=== PATIENT | male | born 1960 | race Caucasian/White ===

== ENCOUNTER → 2018-10-22 | Outpatient (CLI) | payer BC ==
[2018-10-22 09:30] LABS: POTASSIUM 3.7 MMOL/L (3.6-5.0); SODIUM 138 MMOL/L (135-145)
[2018-10-22 09:31] LABS: ALANINE AMINOTRANSFERASE 60 U/L (0-55); ALBUMIN 4.4 GM/DL (3.2-4.5); ALKALINE PHOSPHATASE 67 U/L (40-136); BILIRUBIN,TOTAL 0.5 MG/DL (0.1-1.0); BUN/CREATININE RATIO 25; CALCIUM 9.3 MG/DL (8.5-10.1); CARBON DIOXIDE 17 MMOL/L (21-32); CHLORIDE 100 MMOL/L (98-107); CREATININE SERUM 0.89 MG/DL (0.60-1.30); GFR ESTIMATED > 60; GLUCOSE 191 MG/DL (70-105); TOTAL PROTEIN 7.2 GM/DL (6.4-8.2)
[2018-10-23 15:10] LABS: CHOLESTEROL 168 MG/DL (< 200); HDL CHOLESTEROL 38 MG/DL (40-60); TRIGLYCERIDES 183 MG/DL (<150); VLDL CHOLESTEROL 37 MG/DL (5-40)
== END ==
LOC: LAB FS 08:19
PROVIDERS: ATTEND Pediatrics
DX: E11.9 Type 2 diabetes mellitus without complications (principal)
CPT/HCPCS: 36415; 80053; 80061; 83036

== ENCOUNTER 2018-11-09 11:53 | Emergency (ER) | payer BC ==
[~2018-11-09] VITALS: Ht 167.6 cm; Wt 95.3 kg
--- NOTE | 2018-11-09 12:38 | ED Syncope ---
General Chief Complaint: Dizziness/Syncope Stated Complaint: SYNCOPE; DIARRHEA Source of Information: Patient Exam Limitations: No Limitations History of Present Illness Date Seen by Provider: November 09, 2018 Time Seen by Provider: 12:33 Initial Comments Patient presents c/ c/o having a diarrhea stool approximately Q 30' since last PM. States he actually passed out while having diarrhea and woke up on the bathroom floor. Only reported injuries from his syncopal episode is abrasions to his right hand and left forearm. (+) exposure to 2 grandchildren c/ diarrhea. Denies any N/V. Not sure of any fever. Timing/Prior Episodes: No Prior History Symptoms Prior to Episode: Other (see above) Precipitating Factors: Sitting (on commode having diarrhea) Loss of Consciousness: Brief (Seconds) Current Symptoms: Back to Normal, Other (still having diarrhea.) Allergies and Home Medications Allergies Coded Allergies: No Known Drug Allergies (Unverified , 11/09/18) Patient Home Medication List Home Medication List Reviewed: Yes Review of Systems Constitutional: see HPI Cardiovascular: see HPI, syncope Gastrointestinal: see HPI, diarrhea Skin: see HPI, other (abrasions to right hand and left forearm) All Other Systems Reviewed Negative Unless Noted: Yes (Negative excepted noted.) Physical Exam Vital Signs Vital Signs - First Documented 11/09/18 12:15 Temp 98.7 Pulse 84 Resp 18 B/P (MAP) 109/75 (86) Pulse Ox 96 O2 Delivery Room Air Capillary Refill : Height, Weight, BMI Height: '" Weight: lbs. oz. kg; BMI Method: General Appearance: No Apparent Distress, WD/WN HEENT: Other (mucosa on the dry side) Cardiovascular: Regular Rate, Rhythm Respiratory: No Respiratory Distress Gastrointestinal: No Guarding, No Rebound; Tenderness (diffusely) Neurologic/Psychiatric: Alert, Oriented x3, No Motor/Sensory Deficits Skin: Warm/Dry Progress/Results/Core Measures Results/Orders Lab Results Laboratory Tests Test 11/09/18 12:25 11/09/18 12:51 11/09/18 13:20 Range/Units Glucometer 218 H 70-110 MG/DL Stool Occult Blood Immunoassay POSITIVE H NEGATIVE White Blood Count 11.2 H 4.3-11.0 10^3/uL Red Blood Count 5.77 4.35-5.85 10^6/uL Hemoglobin 16.5 13.3-17.7 G/DL Hematocrit 49 40-54 % Mean Corpuscular Volume 85 80-99 FL Mean Corpuscular Hemoglobin 29 25-34 PG Mean Corpuscular Hemoglobin Concent 34 32-36 G/DL Red Cell Distribution Width 12.8 10.0-14.5 % Platelet Count 171 130-400 10^3/uL Mean Platelet Volume 11.0 H 7.4-10.4 FL Neutrophils (%) (Auto) 85 H 42-75 % Lymphocytes (%) (Auto) 8 L 12-44 % Monocytes (%) (Auto) 7 0-12 % Eosinophils (%) (Auto) 0 0-10 % Basophils (%) (Auto) 0 0-10 % Neutrophils # (Auto) 9.6 H 1.8-7.8 X 10^3 Lymphocytes # (Auto) 0.8 L 1.0-4.0 X 10^3 Monocytes # (Auto) 0.7 0.0-1.0 X 10^3 Eosinophils # (Auto) 0.0 0.0-0.3 10^3/uL Basophils # (Auto) 0.0 0.0-0.1 10^3/uL Neutrophils % (Manual) 54 % Lymphocytes % (Manual) 8 % Monocytes % (Manual) 5 % Eosinophils % (Manual) 0 % Basophils % (Manual) 0 % Band Neutrophils 33 % Blood Morphology Comment NORMAL Sodium Level 132 L 135-145 MMOL/L Potassium Level 3.5 L 3.6-5.0 MMOL/L Chloride Level 96 L 98-107 MMOL/L Carbon Dioxide Level 19 L 21-32 MMOL/L Anion Gap 17 H 5-14 MMOL/L Blood Urea Nitrogen 30 H 7-18 MG/DL Creatinine 1.21 0.60-1.30 MG/DL Estimat Glomerular Filtration Rate > 60 BUN/Creatinine Ratio 25 Glucose Level 221 H 70-105 MG/DL Calcium Level 8.6 8.5-10.1 MG/DL Corrected Calcium 8.6 8.5-10.1 MG/DL Magnesium Level 2.0 1.8-2.4 MG/DL Total Bilirubin 0.5 0.1-1.0 MG/DL Aspartate Amino Transf (AST/SGOT) 38 H 5-34 U/L Alanine Aminotransferase (ALT/SGPT) 71 H 0-55 U/L Alkaline Phosphatase 64 40-136 U/L Total Protein 7.5 6.4-8.2 GM/DL Albumin 4.0 3.2-4.5 GM/DL Micro Results Microbiology 11/09/18 Stool Culture - Preliminary, Resulted Culture In Progress 11/09/18 Rotavirus Antigen - Final, Resulted 11/09/18 C. difficile GDH Antigen & Toxins - Final, Complete My Orders Orders - ELYSE MALIK DO Stool Culture (11/09/18 12:35) Fecal Wbc (11/09/18 12:35) C Difficile Ag + Toxin A/B. (11/09/18 12:35) Rotavirus Antigen (11/09/18 12:35) Occult Blood Stool (11/09/18 12:35) Cbc With Automated Diff (11/09/18 12:35) Comprehensive Metabolic Panel (11/09/18 12:35) Magnesium (11/09/18 12:35) Ed Iv/Invasive Line Start (11/09/18 12:35) Lactated Ringers (Lr 1000 Ml Iv Solution (11/09/18 12:45) Dipht,Pertuss(Acell),Tet Adult (Boostrix (11/09/18 12:45) Manual Differential (11/09/18 13:20) Ns Iv 1000 Ml (Sodium Chloride 0.9%) (11/09/18 15:30) Ct Abdomen/Pelvis W (11/09/18 15:37) Iohexol Injection (Omnipaque 350 Mg/Ml 1 (11/09/18 15:45) Received Contrast (Hold Metformin- Contr (11/09/18 15:45) Sodium Chloride Flush (Catheter Flush Sy (11/09/18 15:45) Ns (Ivpb) (Sodium Chloride 0.9% Ivpb Bag (11/09/18 15:45) Ed Iv/Invasive Line Start (11/09/18 16:29) Medications Given in ED Vital Signs/I&O 11/09/18 11/09/18 12:15 17:18 Temp 98.7 98.7 Pulse 84 81 Resp 18 20 B/P (MAP) 109/75 (86) 142/70 (94) Pulse Ox 96 97 O2 Delivery Room Air Room Air Progress Progress Note : Progress Note Much improved p/ fluids. Diagnostic Imaging Diagonstic Imaging: CT Plain Films/CT/US/NM/MRI: abdomen, pelvis (see report) Departure Impression Primary Impression: Rotaviral gastroenteritis Additional Impressions: Dehydration Syncope Disposition: 01 HOME, SELF-CARE Condition: Improved Departure-Patient Inst. Decision time for Depature: 16:45 Referrals: ABELARDO BAEZA MD (PCP/Family) Primary Care Physician Patient Instructions: Dehydration, Adult (DC), Rotavirus Infection, Syncope ( Fainting) (DC) Add. Discharge Instructions: All discharge instructions reviewed with patient and/or family. Voiced understanding. NEED TO STAY WELL HYDRATED. RECOMMEND PICKING UP SOME PROPEL AND DRINKING IT. AVOID DAIRY AND CAFFEINE. ELYSE MALIK DO November 09, 2018 12:37
[2018-11-09] MEDS ORDERED: TETANUS,DIPTH,PERTUSS P/F (BOOSTRIX) 0.5 ML VIAL IM ONE (12:45)
[2018-11-09] MEDS ORDERED: LACTATED RINGERS 1,000 ML IV SCH (12:45)
[2018-11-09 14:25] LABS: CARBON DIOXIDE 19 MMOL/L (21-32); CHLORIDE 96 MMOL/L (98-107); POTASSIUM 3.5 MMOL/L (3.6-5.0); SODIUM 132 MMOL/L (135-145)
[2018-11-09 14:26] LABS: ALANINE AMINOTRANSFERASE 71 U/L (0-55); ALKALINE PHOSPHATASE 64 U/L (40-136); BILIRUBIN,TOTAL 0.5 MG/DL (0.1-1.0); BUN/CREATININE RATIO 25; CALCIUM 8.6 MG/DL (8.5-10.1); CREATININE SERUM 1.21 MG/DL (0.60-1.30); GFR ESTIMATED > 60; GLUCOSE 221 MG/DL (70-105); TOTAL PROTEIN 7.5 GM/DL (6.4-8.2)
[2018-11-09 15:19] LABS: BASOPHILS % (AUTO) 0 % (0-10); EOSINOPHILS % (AUTO) 0 % (0-10); HEMATOCRIT 49 % (40-54); HEMOGLOBIN 16.5 G/DL (13.3-17.7); LYMPHOCYTES # (AUTO) 0.8 X 10^3 (1.0-4.0); LYMPHOCYTES % (AUTO) 8 % (12-44); MEAN CORPUSCULAR HEMOGLOBIN 29 PG (25-34); MEAN CORPUSCULAR HGB CONC 34 G/DL (32-36); MEAN CORPUSCULAR VOLUME 85 FL (80-99); MONOCYTES % (AUTO) 7 % (0-12); NEUTROPHILS # (AUTO) 9.6 X 10^3 (1.8-7.8); NEUTROPHILS % (AUTO) 85 % (42-75); PLATELET COUNT 171 10^3/uL (130-400); RED CELL DISTRIBUTION WIDTH 12.8 % (10.0-14.5); WHITE BLOOD COUNT 11.2 10^3/uL (4.3-11.0)
[2018-11-09 15:20] LABS: BAND NEUTROPHILS 33 %; BASOPHILS % (MANUAL) 0 %; EOSINOPHILS % (MANUAL) 0 %; LYMPHOCYTES % (MANUAL) 8 %; MONOCYTES # (AUTO) 0.7 X 10^3 (0.0-1.0); MONOCYTES % (MANUAL) 5 %; NEUTROPHILS % (MANUAL) 54 %; RBC MORPH NORMAL
[2018-11-09] MEDS ORDERED: NS 1000 ML IV BAG IV ONE (15:30)
[2018-11-09] MEDS ORDERED: CATHETER FLUSH 10 ML SYR IV PRN (15:45)
[2018-11-09] MEDS ORDERED: NS 100 ML (IVPB) BAG IV ONE (15:45)
[2018-11-09] MEDS ORDERED: HOLD METFORMIN - RECEIVED CONTRAST 20 ML VIAL IV SCH (15:45)
[2018-11-09] MEDS ORDERED: CIPROFLOXACIN IV 400MG/200ML 200 ML IV ONE (15:45)
[2018-11-09] MEDS ORDERED: IOHEXOL 350 MG/ML 100 ML (OMNIPAQUE 350) VIAL IV ONE (15:45)
[2018-11-09] MEDS ORDERED: LACTATED RINGERS 1,000 ML IV ONE (16:29)
--- NOTE | 2018-11-09 16:38 | Diagnostic Imaging Report ---
PROCEDURE: CT abdomen and pelvis with contrast. TECHNIQUE: Multiple contiguous axial images were obtained through the abdomen and pelvis after administration of intravenous contrast. Auto Exposure Controls were utilized during the CT exam to meet ALARA standards for radiation dose reduction. INDICATION: Diarrhea with syncope. COMPARISON: None. FINDINGS: Included portions of the lung bases are clear. CT ABDOMEN: Large and small bowel loops are fluid filled. Multiple air-fluid levels are identified scattered throughout the colon. Small bowel loops are nondistended. Normal appendix is identified. Note is also made of colonic diverticulosis. There is no CT evidence of acute diverticulitis. Liver is diffusely hypodense consistent with background hepatic steatosis. Benign left renal cyst is noted. Otherwise, the kidneys, adrenal glands, spleen, pancreas, and liver have a normal CT appearance. Note is made of cholelithiasis. There is no loculated fluid collection, free fluid, nor free air within the abdomen. There is mild stranding of the central mesenteric fat within the left upper abdominal quadrant. A few prominent, yet subcentimeter mesenteric lymph nodes are also noted. No abnormal retroperitoneal adenopathy is identified. Bony structures show no acute abnormalities. CT PELVIS: Urinary bladder is grossly unremarkable. There is no loculated fluid collection, free fluid, nor free air within the pelvis. No abnormal adenopathy is seen. Bony structures show no acute abnormalities. IMPRESSION: 1. Multiple air-fluid levels seen scattered throughout the large and small bowel, but no evidence of obstruction. Findings are nonspecific, but can be seen with underlying diarrhea. 2. Colonic diverticulosis, but no CT evidence of acute diverticulitis. 3. Hepatic steatosis. 4. Cholelithiasis. 5. Subtle stranding of the central mesenteric fat within the left upper abdominal quadrant. A few associated prominent, yet subcentimeter mesenteric lymph nodes are also noted. Findings are nonspecific, but can be seen with underlying mesenteric adenitis or panniculitis. Dictated by: Dictated on workstation # [id number]
[2018-11-09 17:18] VITALS: BP 142/70
== END 2018-11-09 17:18 | disposition home or self-care (01) ==
LOC: EDUNIT# 11:53 → ER FS 11:54
DX: A08.0 Rotaviral enteritis (principal); E86.0 Dehydration; R55 Syncope and collapse; Z23 Encounter for immunization
CPT/HCPCS: 36415; 74177; 80053; 82274; 82962; 83735; 85007; 85027; 87015; 87045; 87046; 87324; 87425; 87449; 87899; 90715

== ENCOUNTER → 2019-09-17 | Outpatient (CLI) | payer BC ==
[2019-09-19 13:05] LABS: HEPATITIS C ANTIBODY C Non-Reactive (Non-Reactive)
== END ==
LOC: LAB FS 10:23
PROVIDERS: ATTEND Pediatrics
DX: R94.5 Abnormal results of liver function studies (principal)
CPT/HCPCS: 36415; 80074

== ENCOUNTER → 2019-12-17 | Outpatient (CLI) | payer BC ==
[2019-12-17 10:45] LABS: BUN/CREATININE RATIO 22; CARBON DIOXIDE 26 MMOL/L (21-32); CHLORIDE 99 MMOL/L (98-107); CREATININE SERUM 1.06 MG/DL (0.60-1.30); GFR ESTIMATED > 60; POTASSIUM 4.8 MMOL/L (3.6-5.0); SODIUM 137 MMOL/L (135-145)
[2019-12-17 10:46] LABS: ALANINE AMINOTRANSFERASE 50 U/L (0-55); ALBUMIN 4.2 GM/DL (3.2-4.5); ALKALINE PHOSPHATASE 64 U/L (40-136); BILIRUBIN,TOTAL 0.5 MG/DL (0.1-1.0); CALCIUM 9.5 MG/DL (8.5-10.1); GLUCOSE 165 MG/DL (70-105)
[2019-12-17 15:10] LABS: TRIGLYCERIDES 178 MG/DL (<150); VLDL CHOLESTEROL 36 MG/DL (5-40)
[2019-12-17 15:14] LABS: CHOLESTEROL 155 MG/DL (< 200)
[2019-12-17 15:15] LABS: HDL CHOLESTEROL 39 MG/DL (40-60)
== END ==
LOC: LAB FS 07:59
PROVIDERS: ATTEND Pediatrics
DX: E11.9 Type 2 diabetes mellitus without complications (principal); I10 Essential (primary) hypertension
CPT/HCPCS: 36415; 80053; 80061; 83036